=== PATIENT | female | born 1995 | race Caucasian/White ===

== ENCOUNTER 2016-12-31 16:05 | Emergency (ER) | payer OTHER ==
[~2016-12-31] VITALS: Ht 152.4 cm; Wt 53.2 kg
[2016-12-31 16:10] VITALS: TEMP 37; Ht 152.4 cm; Wt 53.2 kg
[2016-12-31] MEDS ORDERED: SODIUM CHLORIDE 0.9% 1000ML 1,000 ML IV STA (16:18)
[2016-12-31] MEDS ORDERED: ONDANSETRON INJ 2 MG/ML 2 ML VIAL IV STA (16:18)
[2016-12-31] MEDS ORDERED: MoRPHine SULFATE 4 MG/ML 1 ML CARP\\VIAL IV STA (16:18)
[2016-12-31] MEDS ORDERED: KETOROLAC TROMETHAMINE 30 MG/ML VIAL IV STA (16:18)
[2016-12-31 16:45] LABS: BASO % 0.1 %; BASO ABS # 0.02 K/uL (0-0.2); COMPLETE YES; EOS % 0.3 %; HEMATOCRIT 41.9 % (37-47); IG% 0.2 %; LYMPH % 10.5 %; LYMPH ABS # 1.63 K/uL (1.2-3.4); MEAN CELL VOLUME 89.5 fL (80-100); MEAN CORPUSCULAR HEMOGLOBIN 31.8 pg (25-34); MEAN CORPUSCULAR HGB CONC 35.6 g/dl (32-36); MEAN PLATELET VOLUME 9.9 fL (7.4-10.4); NEUT % 83.9 %; PLATELET COUNT 310 K/uL (130-400); RED BLOOD COUNT 4.68 M/uL (4.2-5.4); WHITE BLOOD COUNT 15.48 K/uL (4.8-10.8)
[2016-12-31 17:03] LABS: ALT/SGPT 14 U/L (12-78); BLOOD UREA NITROGEN 10 mg/dl (7-18); BUN/CREATININE RATIO 10.2 (10-20); CALCIUM 9.4 mg/dl (8.5-10.1); CARBON DIOXIDE 24 mmol/L (21-32); CHLORIDE 108 mmol/L (98-107); CREATININE 0.96 mg/dl (0.60-1.20); GLUCOSE 105 mg/dl (70-99); POTASSIUM 3.9 mmol/L (3.5-5.1); SODIUM 142 mmol/L (136-145)
[2016-12-31 17:06] LABS: ALKALINE PHOSPHATASE 76 U/L (45-117); AST/SGOT 11 U/L (15-37)
[2016-12-31 17:16] LABS: URINE APPEARANCE CLOUDY (CLEAR); URINE COLOR DK YELLOW; URINE EPITHELIAL CELL AUTO >30 /lpf (0-5); URINE NITRITE NEG (NEG); URINE SPECIFIC GRAVITY 1.042 (1.000-1.030); UROBILINOGEN NEG (NEG); ZZUR CULT IF INDIC CLEAN CATCH NO
[2016-12-31 17:28] LABS: MANUAL MICROSCOPIC REQUIRED? NO; REVIEW REQ? YES
[2016-12-31 17:29] LABS: URINE BILIRUBIN NEG (NEG)
--- NOTE | 2016-12-31 18:51 | DIAGNOSTIC IMAGING REPORT ---
ULTRASOUND OF THE PELVIS CLINICAL HISTORY: Pelvic pain. COMPARISON STUDY: No priors. TECHNIQUE: Real-time, grayscale, and color flow sonography of the pelvis is performed transabdominally. Images are reviewed in the transverse and longitudinal planes. The patient declined the endovaginal examination. FINDINGS: Uterus: The uterus is normal in size and echotexture, measuring 7.9 x 2.9 x 4.2 cm. Endometrium: The endometrium is normal in appearance, and the endometrial stripe is normal in thickness measuring up to 0.7 cm. Ovaries: The ovaries are normal in size and morphology. The right ovary measures 3.3 x 2.1 x 2.6 cm and the left ovary measures 4.0 x 2.5 x 2.1 cm. Small ovarian follicles are observed. Normal Doppler waveforms are shown within both ovaries. Pelvis: There is trace free fluid in the cul-de-sac. No concerning adnexal lesion is seen. IMPRESSION: 1. No acute sonographic abnormality is identified in the pelvis on this transabdominal examination. 2. There is trace and likely physiologic free fluid in the cul-de-sac. Electronically signed by: Zafar Mroley M.D. 12/31/2016 6:50 PM Dictated Date/Time: 12/31/2016 6:48 PM
[2016-12-31] MEDS ORDERED: OPTIRAY 320 IV PRN (19:15)
[2016-12-31 19:31] VITALS: BP 98/60; PULSE 61; O2SAT 98
--- NOTE | 2016-12-31 20:20 | EMERGENCY ROOM VISIT NOTE ---
History Report prepared by [place]: Kimani Whittington Under the Supervision of: Dr. Tima Drummond D.O. First contact with patient: 16:12 Chief Complaint: ABDOMINAL PAIN Stated Complaint: SEVERE STOMACH PAIN History of Present Illness 5The patient is a 21 year old female who presents to the Emergency Room with complaints of severe and constant lower abdominal pains that began this morning at 0930, 7 hours prior to arrival. The patient also notes that she has been experiencing vaginal bleeding, and nausea secondary to the pain. She notes that her LNMP was 1 month ago, and has taken two home tests which both resulted negative. She had a bowel movement this morning which was regular. The patient still has her appendix and gallbladder. She notes that she has taken 4 doses of Midol and some Ibuprofen without relief. Patient denies headache, change in vision, fevers, chest pain, shortness of breath, diarrhea, pain with urination, and melena. 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 A total of 10 systems reviewed and were otherwise negative. Past Medical & Surgical No past medical/surgical history Family History Diabetes mellitus FH: cancer FH: gallbladder disease FH: heart disease FH: lung disease Hypertension Seizures Social History Smoking Status: Current Every Day Smoker Marital Status: in relationship Housing Status: lives with family Occupation Status: unemployed Current/Historical Medications No Active Prescriptions or Reported Meds Allergies Coded Allergies: Penicillins (Verified Allergy, Intermediate, Swelling of throat and hives , 12/31/16) Physical Exam Vital Signs Date Time Temp Pulse Resp B/P Pulse Ox O2 Delivery O2 Flow Rate FiO2 12/31/16 19:31 61 18 98/60 98 12/31/16 18:23 61 16 92/58 97 Room Air 12/31/16 16:10 37.0 107 18 117/75 98 Room Air Physical Exam GENERAL: Sitting up in bed, tearful, mild distress, non toxic. EYE EXAM: normal conjunctiva. OROPHARYNX: no exudate, no erythema, lips, buccal mucosa, and tongue normal and mucous membranes are moist NECK: supple, no nuchal rigidity, no adenopathy, non-tender LUNGS: Clear to auscultation. Normal chest wall mechanics HEART: no murmurs, S1 normal and S2 normal ABDOMEN: abdomen soft, non-tender, normo-active bowel sounds, no masses, no rebound or guarding. BACK: Back is symmetrical on inspection and there is no deformity, no midline tenderness, no CVA tenderness. SKIN: no rashes and no bruising UPPER EXTREMITIES: upper extremities are grossly normal. LOWER EXTREMITIES: No pitting edema. NEURO EXAM: Normal sensorium, cranial nerves II-XII grossly intact, normal speech, no gross weakness of arms, no gross weakness of legs. Medical Decision & Procedures ER Provider Diagnostic Interpretation: Xray results per the radiologist and my interpretation. Other results have been interpreted by the radiologist and reviewed by me. ULTRASOUND OF THE PELVIS CLINICAL HISTORY: Pelvic pain. COMPARISON STUDY: No priors. TECHNIQUE: Real-time, grayscale, and color flow sonography of the pelvis is performed transabdominally. Images are reviewed in the transverse and longitudinal planes. The patient declined the endovaginal examination. FINDINGS: Uterus: The uterus is normal in size and echotexture, measuring 7.9 x 2.9 x 4.2 cm. Endometrium: The endometrium is normal in appearance, and the endometrial stripe is normal in thickness measuring up to 0.7 cm. Ovaries: The ovaries are normal in size and morphology. The right ovary measures 3.3 x 2.1 x 2.6 cm and the left ovary measures 4.0 x 2.5 x 2.1 cm. Small ovarian follicles are observed. Normal Doppler waveforms are shown within both ovaries. Pelvis: There is trace free fluid in the cul-de-sac. No concerning adnexal lesion is seen. IMPRESSION: 1. No acute sonographic abnormality is identified in the pelvis on this transabdominal examination. 2. There is trace and likely physiologic free fluid in the cul-de-sac. Electronically signed by: Zafar Morley M.D. 12/31/2016 6:50 PM Dictated Date/Time: 12/31/2016 6:48 PM Laboratory Results 12/31/16 16:30 Red Blood Count 4.68, Mean Corpuscular Volume 89.5, Mean Corpuscular Hemoglobin 31.8, Mean Corpuscular Hemoglobin Concent 35.6, Mean Platelet Volume 9.9, Neutrophils (%) (Auto) 83.9, Lymphocytes (%) (Auto) 10.5, Monocytes (%) (Auto) 5.0, Eosinophils (%) (Auto) 0.3, Basophils (%) (Auto) 0.1, Neutrophils # (Auto) 12.98, Lymphocytes # (Auto) 1.63, Monocytes # (Auto) 0.78, Eosinophils # (Auto) 0.04, Basophils # (Auto) 0.02 12/31/16 16:30 Test 12/31/16 16:30 12/31/16 16:42 White Blood Count 15.48 K/uL (4.8-10.8) Red Blood Count 4.68 M/uL (4.2-5.4) Hemoglobin 14.9 g/dL (12.0-16.0) Hematocrit 41.9 % (37-47) Mean Corpuscular Volume 89.5 fL (80-100) Mean Corpuscular Hemoglobin 31.8 pg (25-34) Mean Corpuscular Hemoglobin Concent 35.6 g/dl (32-36) Platelet Count 310 K/uL (130-400) Mean Platelet Volume 9.9 fL (7.4-10.4) Neutrophils (%) (Auto) 83.9 % Lymphocytes (%) (Auto) 10.5 % Monocytes (%) (Auto) 5.0 % Eosinophils (%) (Auto) 0.3 % Basophils (%) (Auto) 0.1 % Neutrophils # (Auto) 12.98 K/uL (1.4-6.5) Lymphocytes # (Auto) 1.63 K/uL (1.2-3.4) Monocytes # (Auto) 0.78 K/uL (0.11-0.59) Eosinophils # (Auto) 0.04 K/uL (0-0.5) Basophils # (Auto) 0.02 K/uL (0-0.2) RDW Standard Deviation 44.1 fL (36.4-46.3) RDW Coefficient of Variation 13.4 % (11.5-14.5) Immature Granulocyte % (Auto) 0.2 % Immature Granulocyte # (Auto) 0.03 K/uL (0.00-0.02) Anion Gap 10.0 mmol/L (3-11) Est Creatinine Clear Calc Drug Dose 66.0 ml/min Estimated GFR () 97.3 Estimated GFR (Non- 83.9 BUN/Creatinine Ratio 10.2 (10-20) Calcium Level 9.4 mg/dl (8.5-10.1) Total Bilirubin 0.4 mg/dl (0.2-1) Direct Bilirubin < 0.1 mg/dl (0-0.2) Aspartate Amino Transf (AST/SGOT) 11 U/L (15-37) Alanine Aminotransferase (ALT/SGPT) 14 U/L (12-78) Alkaline Phosphatase 76 U/L (45-117) Total Protein 7.8 gm/dl (6.4-8.2) Albumin 4.2 gm/dl (3.4-5.0) Lipase 70 U/L (73-393) Urine Color DK YELLOW Urine Appearance CLOUDY (CLEAR) Urine pH 7.0 (4.5-7.5) Urine Specific [place] 1.042 (1.000-1.030) Urine Protein 1+ (NEG) Urine Glucose (UA) NEG (NEG) Urine Ketones 1+ (NEG) Urine Occult Blood TRACE (NEG) Urine Nitrite NEG (NEG) Urine Bilirubin NEG (NEG) Urine Urobilinogen NEG (NEG) Urine Leukocyte Esterase TRACE (NEG) Urine WBC (Auto) 1-5 /hpf (0-5) Urine RBC (Auto) 0-4 /hpf (0-4) Urine Hyaline Casts (Auto) 1-5 /lpf (0-5) Urine Epithelial Cells (Auto) >30 /lpf (0-5) Urine Bacteria (Auto) NEG (NEG) Urine Pathogenic Casts /lpf (0) Urine Test NEG (NEG) Laboratory results per my review. Medications Administered Medications (Trade) Dose Ordered Sig/Rene Route Start Time Stop Time Status Last Admin Dose Admin Sodium Chloride (Nss 1000ml) 1,000 ml @ 999 mls/hr Q1H1M STAT IV 12/31/16 16:18 12/31/16 17:18 DC 12/31/16 16:37 999 MLS/HR Ketorolac Tromethamine (Toradol Inj) 30 mg NOW STAT IV 12/31/16 16:18 12/31/16 16:19 DC 12/31/16 16:38 30 MG Morphine Sulfate (MoRPHine SULFATE INJ) 4 mg NOW STAT IV 12/31/16 16:18 12/31/16 16:19 DC 12/31/16 16:38 4 MG Ondansetron HCl (Zofran Inj) 4 mg NOW STAT IV 3/8/17 16:18 12/31/16 16:19 DC 12/31/16 16:38 4 MG ED Course ED COURSE: Vital signs were reviewed and showed Tachycardiac vitals. The patients medical record was reviewed The above diagnostic studies were performed and reviewed. ED treatments and interventions as stated above. 1613: The patient was evaluated in room C7. A complete history and physical examination was performed. 1618: Ordered Zofran 4 mg IV, Morphine Sulfate 4 mg IV, Toradol 30 mg IV, Sodium Chloride 1000 mL @ 999 mL/hr IV. 1901: I checked on the patient at this time, she is feeling much improved. 1914: Upon reevaluation, the patient is declining a CT and pelvic exam. She understands the risks of this decision. I discussed my findings with the patient and She would like to be discharged home outpatient was made. The patient remained stable while under my care. The patient appeared well at the time of discharge. Medical Decision Differential diagnoses includes but is not limited to gastritis, peptic ulcer disease, GERD, gallbladder disease, pancreatitis, small bowel obstruction, acute coronary syndrome, pericarditis, ischemic bowel, irritable bowel disease, irritable bowel syndrome, appendicitis, diverticulitis, malignancy, hernia, urinary tract infection, torsion, /ectopic , perforation, trauma, infectious. Patient is a 21-year-old female that presents to the ER for lower abdominal pain. She notes that started with her typical menstrual cramps and vaginal bleeding. Patient notes that this feels exactly same pain worse. She denies any other vaginal discharge. No fevers greater than 100.4. Patient has a leukocytosis of 15,000. BMP along with LFTs, bilirubin and lipase is negative. UA was negative. Urine was negative. Pelvic ultrasound was unremarkable. With her leukocytosis 15,000 in infraumbilical pain I recommended a CT for possible appendicitis but she declined. I explained the risk and benefits and she declined. Patient was given IV fluids, Toradol, Zofran and morphine. Also recommended pelvic which she declined. She notes she is feeling significantly better. She was discharged follow-up with primary care doctor. She needs an repeat abdominal exam tomorrow tomorrow or return if she has continued pain to rule out appendicitis. Discussed with Pt concerning signs and symptoms to watch out for. Pt was instructed to follow up with their PCP and discussed with the patient their option to return to the ED at anytime for persistent or worsening symptoms. The appropriate anticipatory guidance and out-patient management, including indications for return to the emergency department, were explained at length to the patient and understood. Impression Primary Impression: Lower abdominal pain Additional Impression: Leukocytosis Scribe Attestation The scribe's documentation has been prepared under my direction and personally reviewed by me in its entirety. I confirm that the note above accurately reflects all work, treatment, procedures, and medical decision making performed by me. Departure Information Dispostion Home / Self-Care Prescriptions No Active Prescriptions or Reported Meds Referrals No Doctor, Assigned (PCP) Forms HOME CARE DOCUMENTATION FORM, IMPORTANT VISIT INFORMATION Patient Instructions My [facility] Additional Instructions Please follow up with your primary care doctor with in the next 24 hours. Any worsening of your symptoms, please return to the ED immediately. This includes persistent fevers greater than 100.4, worsening pain, nausea, vomiting, or any other concerning signs or symptoms from your standpoint. We did recommend a CT scan which you declined. You should have your abdomen rechecked by her primary care doctor tomorrow because of your symptoms worsens he will need a CT a possible appendicitis. Problem Qualifiers Additional Impression: Leukocytosis Leukocytosis type: unspecified Qualified Codes: D72.829 - Elevated white blood cell count, unspecified
== END 2016-12-31 19:31 | disposition home or self-care (01) ==
LOC: C.EDB 16:07 → C.EDC 19:31
DX: R10.30 Lower abdominal pain, unspecified (principal); D72.829 Elevated white blood cell count, unspecified; F17.200 Nicotine dependence, unspecified, uncomplicated; Z88.0 Allergy status to penicillin; Z83.3 Family history of diabetes mellitus; Z80.9 Family history of malignant neoplasm, unspecified; Z83.79 Family history of other diseases of the digestive system; Z82.49 Family history of ischemic heart disease and other diseases of the circulatory system; Z82.0 Family history of epilepsy and other diseases of the nervous system